=== PATIENT | male | born 1965 | race Caucasian/White ===

== ENCOUNTER 2016-07-01 10:33 | Emergency (ER) | payer BC ==
[~2016-07-01] VITALS: Ht 188 cm; Wt 83.9 kg
[2016-07-01 11:19] VITALS: BP 135/71
--- NOTE | 2016-07-01 11:59 | PHYS DOC ---
Past Medical History Past Medical History: Other Additional Past Medical Histor: HYPOTENSION Past Surgical History: Other Additional Past Surgical Histo: ROTATOR CUFF X2 Alcohol Use: None Drug Use: None Adult General Chief Complaint Chief Complaint: LACERATION/AVULSION HPI HPI Patient is a 51 year old male presents emergency department stating that he cut his left middle finger with scissors today. He has a flap laceration noted. He is unsure when his last tetanus immunization occurred. Patient's bleeding is currently controlled at this time. Patient does have full range of motion of the left middle finger. Review of Systems Review of Systems Constitutional: Denies fever or chills [] Eyes: Denies change in visual acuity, redness, or eye pain [] HENT: Denies nasal congestion or sore throat [] Respiratory: Denies cough or shortness of breath [] Cardiovascular: No additional information not addressed in HPI [] GI: Denies abdominal pain, nausea, vomiting, bloody stools or diarrhea [] : Denies dysuria or hematuria [] Musculoskeletal: Denies back pain or joint pain [] Integument: Denies rash or skin lesions. Cut left middle finger with scissors Neurologic: Denies headache, focal weakness or sensory changes [] Current Medications Current Medications Current Medications Medications (Trade) Dose Ordered Sig/Yifan Start Time Stop Time Status Last Admin Dose Admin Diphtheria/ Tetanus/Acell Pertussis (Boostrix) 0.5 ml ONCE ONCE 07/01/16 12:30 07/01/16 12:31 Allergies Allergies Allergies Coded Allergies Type Severity Reaction Last Updated Verified No Known Drug Allergies 07/01/16 No Physical Exam Physical Exam Constitutional: Well developed, well nourished, no acute distress, non-toxic appearance. [] HENT: Normocephalic, atraumatic, bilateral external ears normal, oropharynx moist, no oral exudates, nose normal. [] Eyes: PERRLA, EOMI, conjunctiva normal, no discharge. [] Neck: Normal range of motion, no tenderness, supple, no stridor. [] Cardiovascular:Heart rate regular rhythm, no murmur [] Lungs & Thorax: Bilateral breath sounds clear to auscultation [] Skin: Warm, dry, no erythema, no rash. Patient with 0.5 cm flap laceration to the tip of the left middle finger. Bleeding is currently controlled at this time. Back: No tenderness, Extremities: No tenderness, no cyanosis, no clubbing, ROM intact, no edema. [] Neurologic: Alert and oriented X 3, normal motor function, normal sensory function, no focal deficits noted. [] Psychologic: Affect normal, judgement normal, mood normal. [] Current Patient Data Vital Signs Vital Signs Date Time Temp Pulse Resp B/P Pulse Ox O2 Delivery O2 Flow Rate FiO2 07/01/16 11:19 98.1 79 16 97 Room Air 98.1 EKG EKG [] Radiology/Procedures Radiology/Procedures [] Course & Med Decision Making Course & Med Decision Making Pertinent Labs and Imaging studies reviewed. (See chart for details) Left index finger was soaked in soapy water for approximately 20 minutes. Patient with a flap laceration noted. Site was Dermabond as well as Steri- Stripped. Patient was provided with signs and symptoms of infection as well as signs symptoms to return back to emergency department. Patient agrees with discharge instructions treatment regimens and follow-up recommendations. [] Dragon Disclaimer Dragon Disclaimer This electronic medical record was generated, in whole or in part, using a voice recognition dictation system. Departure Departure Impression: Primary Impression: Laceration of finger Disposition: HOME, SELF-CARE Condition: STABLE Referrals: LITO GUIDRY (PCP) Patient Instructions: Sterile Tape Wound Closure, Stitches, Masoud or Skin Adhesive Strips, [id number] Additional Instructions: Keep the area clean and dry. Watch for signs and symptoms of infection: Redness, warmth, tenderness or any yellow/greenish drainage of a come from the site. Steri-Strip should follow off in approximately 7-10 days. Do not pill off the glue. Follow-up through primary care physician as needed. Return back to emergency department sign symptoms of become worse. Tylenol or ibuprofen for pain and discomfort. YARON CASTANEDA NP Jul 01, 2016 11:59
[2016-07-01] MEDS ORDERED: DIPHTH,PERTUSS(ACELL),TET TOX 0.5 ML DISP.SYRIN. VAX IM ONE (12:30)
== END 2016-07-01 12:34 | disposition home or self-care (01) ==
LOC: ER 10:33
DX: S61.213A Laceration without foreign body of left middle finger without damage to nail, initial encounter (principal); I95.9 Hypotension, unspecified; W27.2XXA Contact with scissors, initial encounter; Y93.89 Activity, other specified; Y99.8 Other external cause status; Y92.89 Other specified places as the place of occurrence of the external cause
CPT/HCPCS: 12001; 90471; 90715; 99283-25

== ENCOUNTER 2016-08-07 20:38 | Emergency (ER) | payer BC ==
[2016-08-07 21:39] LABS: BASO % 1 % (0-3); EOS % 1 % (0-3); HEMATOCRIT 42.5 % (39.0-53.0); LYMPH # 2.7 x10^3/uL (1.0-4.8); LYMPH % 31 % (24-48); MEAN CORPUSCULAR HEMOGLOBIN 30 pg (25-35); MEAN CORPUSCULAR HGB CONC 33 g/dL (31-37); MEAN CORPUSCULAR VOLUME 90 fL (79-100); MONO % 10 % (0-9); NEUT % 57 % (31-73); PLATELET COUNT 196 x10^3/uL (140-400); RED BLOOD COUNT 4.73 x10^6/uL (4.30-5.70); RED CELL DISTRIBUTION WIDTH 13.6 % (11.5-14.5); WHITE BLOOD COUNT 8.7 x10^3/uL (4.0-11.0)
[2016-08-07] MEDS ORDERED: KETOROLAC 15 MG/ML VIAL. IV ONE (21:45)
[2016-08-07] MEDS ORDERED: ASPIRIN CHEWABLE 81 MG TABLET. PO ONE (21:45)
[2016-08-07] MEDS ORDERED: HYDROMORPHONE 2 MG/ML VIAL. IV/SQ PRN (21:45)
[2016-08-07] MEDS ORDERED: HYDROMORPHONE 2 MG/ML VIAL. IV ONE (21:45)
[2016-08-07 21:49] LABS: CALCIUM 9.3 mg/dL (8.5-10.1); CREATININE 1.3 mg/dL (0.7-1.3); GFR 57.7; POTASSIUM 4.4 mmol/L (3.5-5.1)
[2016-08-07] MEDS ORDERED: NAPR500T PO (22:59)
[2016-08-07 23:00] VITALS: BP 122/84
--- NOTE | 2016-08-07 23:00 | PHYS DOC ---
Past Medical History Past Medical History: Other Additional Past Medical Histor: HYPOTENSION Past Surgical History: Other Additional Past Surgical Histo: ROTATOR CUFF X2 Alcohol Use: None Drug Use: None Adult General Chief Complaint Chief Complaint: CHEST WALL PAIN [facility] Patient is a 51 year old gentleman who presents here today complaining of chest wall pain. Patient has no history of hypertension diabetes liver longer kidney problems. Patient denies any history of CHF or COPD. Patient has any history of prior seizures or coronary disease. Patient has no known drug allergies. Go, no alcohol or drugs. Patient has any fevers shakes chills nausea vomiting diarrhea cough or shortness of breath. Patient denies any radiating pain or diaphoresis. Patient denies any shortness of breath associated with the pain. Patient denies any recent trauma. Patient has any cardiac family history, high cholesterol, diabetes, hypertension. Patient does chew tobacco. Patient reports he had chest pain all day. Patient reports he got worse tonight increase with deep inspiration and with cough. Patient's reports that he's had this worked up multiple times in the past and was been able to figure out what's causing it. Patient has been evaluated by cardiology in the past as well for the same pain. She has no medications at home that he try prior to coming to the ER. He reports he did not try any Tylenol or ibuprofen. Patient's physical exam is significant for 100% reproducible tenderness to palpation to his left anterior chest wall. Patient has reproducible pain when he takes a deep breath in or coughs for me in the ER. Patient's lungs were clear. Patient's heart was regular rate. Patient's abdomen was soft nontender no rebound or guarding. Patient's EKG in the ER revealed normal sinus rhythm a/p #1 chest wall pain. Etiology unclear however does not appear to be cardiac. Patient's d-dimer is negative which makes dissection much less likely. Patient's EKG does not show any acute ischemia on his labs were all within normal limits. Patient was discharged home in stable condition. Review of Systems Review of Systems Constitutional: Denies fever or chills [] Eyes: Denies change in visual acuity, redness, or eye pain [] HENT: Denies nasal congestion or sore throat [] Respiratory: Denies cough or shortness of breath [] Cardiovascular: No additional information not addressed in HPI [] GI: Denies abdominal pain, nausea, vomiting, bloody stools or diarrhea [] : Denies dysuria or hematuria [] Musculoskeletal: Denies back pain or joint pain [] Integument: Denies rash or skin lesions [] Neurologic: Denies headache, focal weakness or sensory changes [] Endocrine: Denies polyuria or polydipsia [] Current Medications Current Medications Current Medications Medications (Trade) Dose Ordered Sig/Yifan Start Time Stop Time Status Last Admin Dose Admin Aspirin (Children'S Aspirin) 324 mg 1X ONCE 08/07/16 21:45 08/07/16 21:46 DC 08/07/16 21:40 324 MG Hydromorphone HCl (Dilaudid) 0.5 mg PRN Q15MIN PRN 08/07/16 21:45 08/07/16 23:32 DC Ketorolac Tromethamine (Toradol) 15 mg 1X ONCE 08/07/16 21:45 08/07/16 21:46 DC 08/07/16 21:41 15 MG Allergies Allergies Allergies Coded Allergies Type Severity Reaction Last Updated Verified No Known Drug Allergies 07/01/16 No Physical Exam Physical Exam Constitutional: Well developed, well nourished, no acute distress, non-toxic appearance. [] HENT: Normocephalic, atraumatic, bilateral external ears normal, oropharynx moist, no oral exudates, nose normal. [] Eyes: PERRLA, EOMI, conjunctiva normal, no discharge. [] Neck: Normal range of motion, no tenderness, supple, no stridor. [] Cardiovascular:Heart rate regular rhythm, no murmur [] Lungs & Thorax: Bilateral breath sounds clear to auscultation [] Abdomen: Bowel sounds normal, soft, no tenderness, no masses, no pulsatile masses. [] Skin: Warm, dry, no erythema, no rash. [] Back: No tenderness, no CVA tenderness. [] Extremities: No tenderness, no cyanosis, no clubbing, ROM intact, no edema. [] Neurologic: Alert and oriented X 3, normal motor function, normal sensory function, no focal deficits noted. [] Psychologic: Affect normal, judgement normal, mood normal. [] Current Patient Data Vital Signs Vital Signs Date Time Temp Pulse Resp B/P Pulse Ox O2 Delivery O2 Flow Rate FiO2 08/07/16 23:00 66 122/84 95 Room Air 08/07/16 20:50 98.1 18 98.1 Lab Values Laboratory Tests Test 08/07/16 21:05 White Blood Count 8.7x10^3/uL (4.0-11.0) Red Blood Count 4.73x10^6/uL (4.30-5.70) Hemoglobin 14.0g/dL (13.0-17.5) Hematocrit 42.5% (39.0-53.0) Mean Corpuscular Volume 90fL (79-100) Mean Corpuscular Hemoglobin 30pg (25-35) Mean Corpuscular Hemoglobin Concent 33g/dL (31-37) Red Cell Distribution Width 13.6% (11.5-14.5) Platelet Count 196x10^3/uL (140-400) Neutrophils (%) (Auto) 57% (31-73) Lymphocytes (%) (Auto) 31% (24-48) Monocytes (%) (Auto) 10% (0-9) H Eosinophils (%) (Auto) 1% (0-3) Basophils (%) (Auto) 1% (0-3) Neutrophils # (Auto) 5.0x10^3uL (1.8-7.7) Lymphocytes # (Auto) 2.7x10^3/uL (1.0-4.8) Monocytes # (Auto) 0.9x10^3/uL (0.0-1.1) Eosinophils # (Auto) 0.1x10^3/uL (0.0-0.7) Basophils # (Auto) 0.0x10^3/uL (0.0-0.2) D-Dimer (Gabriela) 0.27ug/mlFEU (0.00-0.50) Sodium Level 141mmol/L (136-145) Potassium Level 4.4mmol/L (3.5-5.1) Chloride Level 103mmol/L (98-107) Carbon Dioxide Level 30mmol/L (21-32) Anion Gap 8 (6-14) Blood Urea Nitrogen 27mg/dL (8-26) H Creatinine 1.3mg/dL (0.7-1.3) Estimated GFR (Cockcroft-Gault) 57.7 Glucose Level 120mg/dL (70-99) H Calcium Level 9.3mg/dL (8.5-10.1) Troponin I Quantitative < 0.017ng/mL (0.000-0.055) Laboratory Tests 08/07/16 21:05 Laboratory Tests 08/07/16 21:05 EKG EKG [] Radiology/Procedures Radiology/Procedures [] Course & Med Decision Making Course & Med Decision Making Pertinent Labs and Imaging studies reviewed. (See chart for details) [] Dragon Disclaimer Dragon Disclaimer This electronic medical record was generated, in whole or in part, using a voice recognition dictation system. Departure Departure Impression: Primary Impression: Non-cardiac chest pain Additional Impression: Chest wall pain Disposition: HOME, SELF-CARE Condition: IMPROVED Referrals: LITO GUIDRY (PCP) Patient Instructions: Chest Wall Pain Scripts Naproxen (Naprosyn)500 Mg Tablet1 Tab PO BID PRN PAIN #60 TAB Ref 1 Prov:SHANI RIOS MD 08/07/16 Problem Qualifiers SHANI RIOS MD Aug 07, 2016 23:00
--- NOTE | 2016-08-07 23:04 | EKG ---
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
--- NOTE | 2016-08-08 08:32 | RAD ---
AP portable chest radiograph 08/07/2016 Clinical History: Chest pain. An AP portable erect digital radiograph of the chest was obtained. No previous studies are available for comparison. The cardiac silhouette is normal in size. The thoracic aorta is mildly tortuous. Linear bands of subsegmental atelectasis are seen involving the left lower lobe. No area of consolidation is seen. No pneumothorax or pleural effusion is noted. Degenerative changes are seen involving the thoracic spine. Impression: No area of consolidation is seen.
== END 2016-08-07 23:32 | disposition home or self-care (01) ==
LOC: ER 20:38
DX: R07.89 Other chest pain (principal); R05 Cough; F17.220 Nicotine dependence, chewing tobacco, uncomplicated; I95.9 Hypotension, unspecified
CPT/HCPCS: 36415; 71010; 80048; 84484; 85027; 85379; 93005; 96374; 96375; 99285; J1170; J1885